=== PATIENT | female | born 1985 | race Two or more races ===

== ENCOUNTER → 2017-01-30 | Outpatient (CLI) | payer BC | LOC: FIMAGING 11:53 | PROVIDERS: ATTEND Family Medicine | DX: R10.32 Left lower quadrant pain (principal) ==

== ENCOUNTER → 2017-02-06 | Outpatient (CLI) | payer BC | LOC: FIMAGING 13:37 | PROVIDERS: ATTEND Family Medicine | DX: Z12.39 Encounter for other screening for malignant neoplasm of breast (principal); N64.52 Nipple discharge; Z80.3 Family history of malignant neoplasm of breast | CPT/HCPCS: G0202-52; G0206 ==

== ENCOUNTER → 2017-03-27 | Outpatient (CLI) | payer BC | LOC: FIMAGING 13:27 | PROVIDERS: ATTEND Family Medicine | DX: R10.32 Left lower quadrant pain (principal) ==